=== PATIENT | female | born 1965 | race American Indian/Alaskan Native ===

== ENCOUNTER 2018-01-04 10:53 | Outpatient (CLI) | payer OTHER ==
[2018-01-04] MEDS ORDERED: PROVENTIL IH ONE (11:26)
== END 2018-01-04 10:54 | disposition home or self-care (01) ==
LOC: PF 10:53
PROVIDERS: ATTEND Internal Medicine
DX: J45.909 Unspecified asthma, uncomplicated (principal); F17.210 Nicotine dependence, cigarettes, uncomplicated
CPT/HCPCS: 94060; 94640